=== PATIENT | male | born 1985 | race Caucasian/White ===

== ENCOUNTER 2018-01-14 05:37 | Inpatient (IN) ==
--- NOTE | 2018-01-14 06:16 | ED ---
HPI General Chief Complaint: Psychiatric Symptoms Stated Complaint: Transfer [facility] Time Seen by Provider: 01/14/18 13:00 Source: patient Mode of arrival: ambulatory Limitations: no limitations History of Present Illness HPI Narrative: 32-year-old white male presents emergency department as a transfer after medical clearance. Patient was transferred to be evaluated by the psychiatrist. Patient had been placed under a Rice act after trying to kill himself by jumping out of a tree. He states that he had been hearing voices commanding him to do self-harm. The patient admits to polysubstance abuse. Also states that he is upset because his baby mamma will not allow him to see his 9-month-old child. Patient complains of right facial pain. She denies syncope. No neck or back pain. No numbness, tingling or weakness. Patient had laboratory testing which was positive for cocaine and amphetamines. CAT scan of the head and facial bones were negative for acute intracranial injury or bony injury. Related Data Home Medications Medication Instructions Recorded Confirmed hydroxyzine pamoate 25 mg PO TID PRN 01/15/18 01/15/18 sertraline 50 mg PO DAILY 01/15/18 01/15/18 trazodone 50 - 100 mg PO HS PRN 01/15/18 01/15/18 Allergies Allergy/AdvReac Type Severity Reaction Status Date / Time No Known Allergies Allergy Unverified 01/14/18 06:18 Review of Systems ROS: all other systems reviewed are negative PMFSH Social History Social History Substance History: Active Abuse Second Hand Smoke Exposure: No Smoking Status: Heavy tobacco smoker Tobacco Type: Cigarettes How Often Do You Have a Drink Containing Alcohol: Monthly or less Recent Travel in [facility] within the Last 8 Weeks: No Recent Out of Country Travel within the Last 8 Weeks: No Exam Narrative Exam Narrative: GENERAL: Well-nourished, well-developed patient. SKIN: Warm and dry. Right periorbital ecchymosis but the skin is intact HEAD: Patient has right periorbital ecchymosis and edema. Tender to touch. No bony step-off. EYES: No scleral icterus. No injection or drainage. ENT: No nasal drainage noted. Mucous membranes pink. Airway patent. NECK: Supple, trachea midline. Moves head freely without obvious discomfort. CARDIOVASCULAR: Regular rate and rhythm without murmurs, gallops, or rubs. RESPIRATORY: Breath sounds equal bilaterally. No accessory muscle use. GASTROINTESTINAL: Abdomen soft, non-tender, nondistended. EXTREMITIES: No cyanosis or edema. BACK: Nontender without obvious deformity. No CVA tenderness. NEURO: Patient is alert and oriented. no sensorimotor deficits. Nonfocal. Normal speech. PSYCH: No delusions. No auditory or visual hallucinations. Course Reevaluation(s) Reevaluation #1: Patient was medically cleared to see psych. I was notified that because patient is due to go to [facility], his potassium should be over 3.3 prior to going to [facility] in the morning. Will recheck BMP. Time: 16:20 Initial Documented Vital Signs Temperature 99.1 F 01/14/18 05:37 Pulse Rate 64 01/14/18 05:37 Respiratory Rate 16 01/14/18 05:37 Blood Pressure 122/63 01/14/18 05:37 Last Documented Vital Signs Temperature 97.7 F 01/17/18 17:36 Pulse Rate 59 L 01/17/18 17:36 Respiratory Rate 16 01/17/18 18:52 Blood Pressure 109/59 L 01/17/18 17:36 Pulse Oximetry 100 01/17/18 17:36 Medical Decision Making MDM Narrative Medical decision making narrative: The patient has had medical clearance prior to coming in. I reviewed patient's laboratory tests. He had been given potassium 40 mEq p.o. prior to coming. CAT scan of the head and facial bones were negative for acute intracranial injury or fracture. There is no indication for additional testing at this time. Medical Screen Exam Complete: Yes Emergency Medical Condition: Yes Differential Diagnosis Differential Diagnosis: MDM: High Differential diagnoses: Schizophrenia, schizoaffective disorder, bipolar, anxiety, depression, adjustment reaction, mood disorder NOS, ODD, depressive disorder NOS, dementia, dementia with agitation, psychosis NOS, substance induced mood disorder, DMDD, Asperger syndrome, infection,electrolyte abnormality, malingering. Mental health screening discussed with the patient. Psychiatric screen ordered. Lab Data Result diagrams: 01/16/18 10:10 Lab Results 01/14/18 01/16/18 01/16/18 Range/Units 21:00 10:10 10:10 Sodium 145 144 (136-145) meq/L Potassium 4.1 4.1 (3.5-5.1) meq/L Chloride 108 H 105 (98-107) meq/L Carbon Dioxide 31.0 30.3 (21.0-32.0) meq/L Anion Gap 6 9 (5-15) meq/L BUN 9 12 (7-18) mg/dL Creatinine 0.88 0.82 (0.60-1.30) mg/dL Estimated GFR Greater than 89 Greater than 89 (>89) mL/min Random Glucose 102 95 (74-106) mg/dL Hemoglobin A1c 5.4 (4.3-6.0) % Calcium 8.7 8.8 (8.5-10.1) mg/dL Triglycerides 86 (42-150) mg/dL Cholesterol 96 L (120-200) mg/dL LDL Cholesterol, Calc 37 (0-99) mg/dL HDL Cholesterol 42.2 (40.0-60.0) mg/dL Cholesterol/HDL Ratio 2.27 Ratio Discharge Plan Discharge Disposition Patient Disposition: 32 Still Patient Discharge Condition Condition: Stable Physicians Team ED Provider: Maximilian Rocha ED Midlevel Provider: Jc Fontaine Primary Care Provider: Primary Care Lizette Cornelius Attending Provider: Hugh Lowe Other Providers: Eren Good Status ED Status: Left Department Discharge Information Discharge Date/Time: 01/15/18 19:54
--- NOTE | 2018-01-14 13:39 | ED ---
HPI - Psych - General Source: patient, other ([facility] records) Mode of arrival: ambulatory Limitations: no limitations - History of Present Illness MD complaint: suicidal ideation Onset (ago): week(s) Duration: constant History of same: Yes (Reports attempted to hang himself several months ago) Relieving factors: none Exacerbating factors: drug use Context: recent drug abuse, not taking psychiatric medications Associated psychiatric symptoms: depression Associated symptoms: denies other symptoms Treatments prior to arrival: none - General Chief Complaint: Psychiatric Symptoms Stated Complaint: Transfer [facility] Time Seen by Provider: 01/14/18 13:00 - History of Present Illness HPI Narrative: HPI Narrative: 32-year-old white, single male with reported history of depression, 2 previous suicide attempt by hanging and jumping off a tree, substance use disorder including amphetamines, cocaine and cannabis who presents to emergency department as a transfer from [facility] in [place] after medical clearance. Patient initially presented to that emergency department on a voluntary basis reporting suicidal ideation. According to the records which have been reviewed, he reported that he attempted to commit suicide 2 nights ago by jumping 15 feet from a tree and landing with his head aimed at a rock. He also reported command hallucinations that were telling him " Do yourself in. You do not need to be alive anymore. The patient was placed under Rice act by ED provider at [facility]. Records accompanying patient are reviewed. Records indicate that the patient was discharged from [facility] behavioral unit on December 31 of this year but failed to follow up with outpatient care. Toxicology positive for amphetamines, cocaine, cannabinoids. Patient is seen. carey Salgado present during evaluation. Patient is alert , oriented, disheveled appearance, ecchymotic right eye. Speech is clear, logical. Patient does not appear internally preoccupied although reports that he hears voices that tell him to kill himself. Patient reports mood as depressed. 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 He goes on to state that he "just need help with my head". (Ann Jones) - Related Data Allergies Allergy/AdvReac Type Severity Reaction Status Date / Time No Known Allergies Allergy Unverified 01/14/18 06:18 COUNT INCLUDES THE [facility] - History History Provided By: Patient - Tobacco History Smoking Status: Never smoker - Alcohol History How Often Do You Have a Drink Containing Alcohol: 2 to 3 times a week - Substance Use History Substance History: No History of Abuse, Active Abuse - Substance Use Type Crack/Cocaine Status: Active Amphetamines Status: Active Marijuana Status: Active - Immunization History Tetanus Immunization: >5 Years Hx Influenza Vaccine This Season: No Psychiatric History - Psychiatric History Psychiatric Treatment History: Denies Previous Treatment History of Inpatient Treatment: Yes Firearms in Home: No - Psychiatric History Denies. Records indicate that he attempted suicide by jumping off a tree. One previous attempt by hanging several months ago. Admitted to [facility] on December 2107. (Jones,Ann) - Legal History Unknown (Jones,Ann) - Family Psychiatric History Unknown (Gretchen Joness) Physical Exam - General Limitations: no limitations Mental Status Examination Appearance: Disheveled Consciousness: Alert Orientation: x4 Motor Activity: Normal gait Speech: Unremarkable Language: Adequate Fund of Knowledge: Adequate Attention and Concentration: Inadequate Memory: Unremarkable (poor historian) Mood: Angry, Irritable Affect: Blunt Thought Process & Associations: Intact, Logical, Goal directed Thought Content: Appropriate Hallucination Type: Auditory (does not appear to be respondign to internal stimuli) Delusion Type: None Suicidal Ideation: Yes Suicidal Plan: No Suicidal Intention: No Homicidal Ideation: No Homicidal Plan: No Homicidal Intention: No Insight: Poor Judgment: Impulsive Initial Documented Vital Signs Temperature 99.1 F 01/14/18 05:37 Pulse Rate 64 01/14/18 05:37 Respiratory Rate 16 01/14/18 05:37 Blood Pressure 122/63 01/14/18 05:37 Last Documented Vital Signs Temperature 99.1 F 01/14/18 05:37 Pulse Rate 64 01/14/18 05:37 Respiratory Rate 16 01/14/18 05:37 Blood Pressure 122/63 01/14/18 05:37 MDM - Psych - Diagnosis (1) Substance induced mood disorder Status: Acute - [facility] Narrative Medical decision making narrative: At the time of this evaluation the patient is very irritable, vague in his answers, and only minimally cooperative. Patient denied using any substances although positive toxicology for amphetamines, cocaine, cannabinoids. He continues to endorse suicidal ideation. Patient will be placed on [facility] list for further treatment. Remains under Rice act at this time until further evaluation. (Ann Jones)
[2018-01-14 21:46] LABS: Anion Gap 6 meq/L (5-15); Blood Urea Nitrogen 9 mg/dL (7-18); Calcium 8.7 mg/dL (8.5-10.1); Chloride 108 meq/L (98-107); Glomerular Filtration Rate Greater Than 89 mL/min (>89); Glucose,Random 102 mg/dL (74-106); Potassium 4.1 meq/L (3.5-5.1); Sodium 145 meq/L (136-145)
[2018-01-15] MEDS ORDERED: LORazepam 1 MG Tablet PO PRN (18:32)
[2018-01-15] MEDS ORDERED: Aluminum/Magnesium/Simethacone Susp 30 ML UDC PO PRN (18:32)
[2018-01-15] MEDS: Senna/Docusate Sodium 8.6/50 MG Tablet PO SCH (22:48)
[2018-01-16] MEDS: Senna/Docusate Sodium 8.6/50 MG Tablet PO SCH ×2 (09:32→21:25)
[2018-01-16 11:00] LABS: Anion Gap 9 meq/L (5-15); Blood Urea Nitrogen 12 mg/dL (7-18); Calcium 8.8 mg/dL (8.5-10.1); Carbon Dioxide 30.3 meq/L (21.0-32.0); Chloride 105 meq/L (98-107); Cholesterol 96 mg/dL (120-200); Glomerular Filtration Rate Greater Than 89 mL/min (>89); Glucose,Random 95 mg/dL (74-106); Potassium 4.1 meq/L (3.5-5.1); Sodium 144 meq/L (136-145); Triglycerides 86 mg/dL (42-150)
[2018-01-16 11:01] LABS: Chol/HDL Ratio 2.27 Ratio; HDL Cholesterol 42.2 mg/dL (40.0-60.0); LDL Cholesterol,Calculated 37 mg/dL (0-99)
[2018-01-16 13:18] LABS: Hemoglobin A1c 5.4 % (4.3-6.0)
[2018-01-16] MEDS: Acetaminophen 325 MG Tablet PO PRN (13:40)
[2018-01-16] MEDS ORDERED: Aluminum/Magnesium/Simethacone Susp 30 ML UDC PO PRN (14:31)
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
[2018-01-16] MEDS: Escitalopram 10 MG Tablet PO SCH (15:34)
[2018-01-16] MEDS: QUEtiapine 100 MG Tablet PO SCH (21:25)
[2018-01-17] MEDS: Escitalopram 10 MG Tablet PO SCH (09:47)
[2018-01-17] MEDS: Senna/Docusate Sodium 8.6/50 MG Tablet PO SCH ×2 (09:48→20:19)
--- NOTE | 2018-01-17 11:20 | P.PNPSY ---
Subjective Remarks: This is a request for second opinion. Admission note was reviewed and I agree with the history. Patient was seen and case was discussed with nursing. Patient describes being depressed for the last couple of weeks with suicidal ideation. He claims he was not using when he jumped out of the tree. He describes various stressors in psychoeducation and supportive therapy was done. There is little insight or motivation to stop using drugs however today, he contracts for safety and denies suicidal or homicidal ideation intent or plan. Mental Status Examination Appearance: Appropriate, Disheveled Consciousness: Alert Orientation: x4 Motor Activity: Normal gait Speech: Unremarkable Language: Adequate Fund of Knowledge: Adequate Attention and Concentration: Adequate (Fair) Memory: Unremarkable (poor historian) Mood: Sad Affect: Blunt Thought Process & Associations: Intact, Logical, Goal directed Thought Content: Appropriate Hallucination Type: None Delusion Type: None Suicidal Ideation: Yes (Patient will probably take the suicide pill) Suicidal Plan: No Suicidal Intention: No Homicidal Ideation: No Homicidal Plan: No Homicidal Intention: No Insight: Poor Judgment: Impulsive Assessment and Plan - Assessment (1) Substance induced mood disorder Code(s): F19.94 - Other psychoactive substance use, unspecified with psychoactive substance-induced mood disorder Status: Acute (2) Adjustment disorder with mixed disturbance of emotions and conduct Code(s): F43.25 - Adjustment disorder with mixed disturbance of emotions and conduct Status: Acute (3) Polysubstance abuse Code(s): F19.10 - Other psychoactive substance abuse, uncomplicated Status: Acute - Plan Plan: I agree with the first opinion to continue petition. Criteria include suicide attempt Justification for Continued Inpatient Stay: Patient would decompensate in a less restrictive setting Request Healthcare Surrogate/Guardian Advocate?: No
[2018-01-17] MEDS: Acetaminophen 325 MG Tablet PO PRN (16:26)
[2018-01-17] MEDS: QUEtiapine 100 MG Tablet PO SCH (20:20)
[2018-01-18] MEDS: Escitalopram 10 MG Tablet PO SCH (09:28)
[2018-01-18] MEDS: Senna/Docusate Sodium 8.6/50 MG Tablet PO SCH ×2 (10:43→20:47)
--- NOTE | 2018-01-18 13:14 | P.PNPSY ---
Subjective Remarks: The patient was seen today for psychiatric reevaluation. Case was discussed with nursing charge. Documentation from weekend was reviewed. On psychiatric evaluation the patient is in his bed, isolated, kind of guarded. He continues to endorse depression, feeling anhedonia, hopeless, helplessness, and also hearing voices telling him to kill himself. The patient was able to contract for safety in the unit. He reports that he wants to get better, he wants to continue his medications, so far he has been compliant, no significant side effects. Is oriented 3. No agitation, no aggressive behavior reported for this patient in the Unit. Mental Status Examination Appearance: Appropriate, Disheveled Consciousness: Alert Orientation: x4 Motor Activity: Normal gait Speech: Unremarkable Language: Adequate Fund of Knowledge: Adequate Attention and Concentration: Adequate (Fair) Memory: Unremarkable (poor historian) Mood: Sad Affect: Blunt Thought Process & Associations: Intact, Logical, Goal directed Thought Content: Appropriate Hallucination Type: None Delusion Type: None Suicidal Ideation: Yes (Patient will probably take the suicide pill) Suicidal Plan: No Suicidal Intention: No Homicidal Ideation: No Homicidal Plan: No Homicidal Intention: No Insight: Poor Judgment: Impulsive Assessment and Plan - Assessment (1) Substance induced mood disorder Code(s): F19.94 - Other psychoactive substance use, unspecified with psychoactive substance-induced mood disorder Status: Acute (2) Adjustment disorder with mixed disturbance of emotions and conduct Code(s): F43.25 - Adjustment disorder with mixed disturbance of emotions and conduct Status: Acute (3) Polysubstance abuse Code(s): F19.10 - Other psychoactive substance abuse, uncomplicated Status: Acute - Plan Plan: Patient continues to be very depressed, with commanding type auditory hallucinations. Today I will increase the Celexa to 20 mg daily for depression Justification for Continued Inpatient Stay: Patient is acutely psychotic, very depressed, needs to continue psychiatric hospitalization for stabilization. Request Healthcare Surrogate/Guardian Advocate?: No
[2018-01-18] MEDS: QUEtiapine 100 MG Tablet PO SCH (20:32)
[2018-01-19] MEDS: Senna/Docusate Sodium 8.6/50 MG Tablet PO SCH ×2 (09:15→20:48)
[2018-01-19] MEDS: Acetaminophen 325 MG Tablet PO PRN ×3 (09:50→21:32)
--- NOTE | 2018-01-19 14:01 | P.PNPSY ---
Subjective Remarks: Patient seen and hanson with floor staff, chart reviewed, patient compliant medication. Patient continues somewhat aroused stating there is still vague auditory hallucinations in his peripheral somewhat depressed. States his sleep is somewhat improved. Patient able contract to do no harm at this time. We will add Seroquel 50 mg at 8 AM and 4 PM continue the 100 mg at at bedtime Review of Systems All other systems reviewed negative except as stated in HPI Mental Status Examination Appearance: Appropriate, Disheveled Consciousness: Alert Orientation: x4 Motor Activity: Normal gait Speech: Unremarkable Language: Adequate Fund of Knowledge: Adequate Attention and Concentration: Adequate (Fair) Memory: Unremarkable (poor historian) Mood: Sad Affect: Blunt Thought Process & Associations: Intact, Logical, Goal directed Thought Content: Appropriate Hallucination Type: Auditory (Vague intermittent) Delusion Type: None Suicidal Ideation: Yes (Patient will probably take the suicide pill) Suicidal Plan: No Suicidal Intention: No Homicidal Ideation: No Homicidal Plan: No Homicidal Intention: No Insight: Poor Judgment: Impulsive Assessment and Plan - Assessment (1) Substance induced mood disorder Code(s): F19.94 - Other psychoactive substance use, unspecified with psychoactive substance-induced mood disorder Status: Acute (2) Adjustment disorder with mixed disturbance of emotions and conduct Code(s): F43.25 - Adjustment disorder with mixed disturbance of emotions and conduct Status: Acute (3) Polysubstance abuse Code(s): F19.10 - Other psychoactive substance abuse, uncomplicated Status: Acute - Plan Plan: Patient continues vigilant somewhat paranoid and vague reference towards voices , c medication adjustments above Justification for Continued Inpatient Stay: At this time patient would decompensate a place to a lower level of care Discharge Planning: To be determined Request Healthcare Surrogate/Guardian Advocate?: No
--- NOTE | 2018-01-19 14:52 | P.TTN ---
- Patient Problems Problems: 1. Discharge planning 2. Medication compliance 3. Knowledge deficit 4. Lack of coping skills - Progress Toward Goals Provider Present: Dr. Benito Hull (Patient is new to Dr. Hull.) Psychiatric Counselors Present: Omar Rahman Jr., [facility] (Patient is new to counselor Omar.) - Documentation Teaching Recipient: Patient
[2018-01-19] MEDS: QUEtiapine 25 MG Tablet PO SCH (15:17)
[2018-01-19] MEDS: QUEtiapine 100 MG Tablet PO SCH (20:49)
[2018-01-20 07:10] VITALS: O2SAT 98
[2018-01-20] MEDS: Senna/Docusate Sodium 8.6/50 MG Tablet PO SCH ×2 (08:32→21:30)
[2018-01-20] MEDS: QUEtiapine 25 MG Tablet PO SCH ×2 (08:39→15:35)
--- NOTE | 2018-01-20 14:44 | P.PNPSY ---
Subjective Remarks: Patient is seen and hanson with nurse Galilea, chart reviewed, patient compliant medication. Patient's mood is slowly lifting he is showing increased affect with better eye contact though he still is somewhat vague about suicidality. However feel at this time patient is improved to the point where he is a capacity to sign voluntary thus I will lift Rice act low patient signed voluntary and continue treatment Review of Systems All other systems reviewed negative except as stated in HPI Mental Status Examination Appearance: Appropriate, Disheveled Consciousness: Alert Orientation: x4 Motor Activity: Normal gait Speech: Unremarkable Language: Adequate Fund of Knowledge: Adequate Attention and Concentration: Adequate (Fair) Memory: Unremarkable (poor historian) Mood: Sad Affect: Other (Improved range and intensity) Thought Process & Associations: Intact, Logical, Goal directed Thought Content: Appropriate Hallucination Type: Auditory (Vague intermittent) Delusion Type: None Suicidal Ideation: Yes (Improved somewhat vague today) Suicidal Plan: No Suicidal Intention: No Homicidal Ideation: No Homicidal Plan: No Homicidal Intention: No Insight: Poor Judgment: Impulsive Assessment and Plan - Assessment (1) Substance induced mood disorder Code(s): F19.94 - Other psychoactive substance use, unspecified with psychoactive substance-induced mood disorder Status: Acute (2) Adjustment disorder with mixed disturbance of emotions and conduct Code(s): F43.25 - Adjustment disorder with mixed disturbance of emotions and conduct Status: Acute (3) Polysubstance abuse Code(s): F19.10 - Other psychoactive substance abuse, uncomplicated Status: Acute - Plan Plan: Patient depression is slowly lifting. At the stomach feel patient does have capacity will lift the Rice act allow him to sign voluntary continue treatment Justification for Continued Inpatient Stay: At this time patient would decompensate a place to a lower level of care Discharge Planning: To be determined Request Healthcare Surrogate/Guardian Advocate?: No
[2018-01-20] MEDS: QUEtiapine 100 MG Tablet PO SCH (21:30)
[2018-01-21 04:52] VITALS: RESP 16
[2018-01-21] MEDS: Senna/Docusate Sodium 8.6/50 MG Tablet PO SCH ×2 (08:59→20:45)
[2018-01-21] MEDS: QUEtiapine 25 MG Tablet PO SCH ×2 (08:59→15:17)
--- NOTE | 2018-01-21 12:26 | P.PNPSY ---
Subjective Remarks: Patient is seen and hanson with floor staff, chart reviewed, patient compliant medication. His mood continues to improve he is vague about suicidality denies voices. However there is some anxiety related to placement issues. We did discuss sober living facilities. Patient seems quite willing to consider them. At make telephone calls. We will have counselor supply patient with phone number and locations for the various supportive living places here in [facility] and in [place] then consider discharge tomorrow Review of Systems All other systems reviewed negative except as stated in HPI Mental Status Examination Appearance: Appropriate, Disheveled Consciousness: Alert Orientation: x4 Motor Activity: Normal gait Speech: Unremarkable Language: Adequate Fund of Knowledge: Adequate Attention and Concentration: Adequate (Fair) Memory: Unremarkable (poor historian) Mood: Sad Affect: Other (Improved range and intensity) Thought Process & Associations: Intact, Logical, Goal directed Thought Content: Appropriate Hallucination Type: Auditory (Vague intermittent) Delusion Type: None Suicidal Ideation: Yes (Improved somewhat vague today) Suicidal Plan: No Suicidal Intention: No Homicidal Ideation: No Homicidal Plan: No Homicidal Intention: No Insight: Poor Judgment: Impulsive Assessment and Plan - Assessment (1) Substance induced mood disorder Code(s): F19.94 - Other psychoactive substance use, unspecified with psychoactive substance-induced mood disorder Status: Acute (2) Adjustment disorder with mixed disturbance of emotions and conduct Code(s): F43.25 - Adjustment disorder with mixed disturbance of emotions and conduct Status: Acute (3) Polysubstance abuse Code(s): F19.10 - Other psychoactive substance abuse, uncomplicated Status: Acute - Plan Plan: Patient calmer more focused his affect is improving. Though there is some anxiety related to placement issues. Patient started calling sober living facilities consider discharge tomorrow patient is vague about any suicidality though his behavior on the unit shows he is improving. He is also compliant medication Justification for Continued Inpatient Stay: At this time patient would decompensate if not placed in an appropriate level of care patient to explore sober living facilities today Discharge Planning: To be determined Request Healthcare Surrogate/Guardian Advocate?: No
[2018-01-21] MEDS: QUEtiapine 100 MG Tablet PO SCH (20:44)
[2018-01-22 06:30] VITALS: BP 104/54; PULSE 54; TEMP 97.9
[2018-01-22] MEDS: Senna/Docusate Sodium 8.6/50 MG Tablet PO SCH (08:43)
[2018-01-22] MEDS: QUEtiapine 25 MG Tablet PO SCH (08:48)
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
== END 2018-01-22 13:35 | disposition home or self-care (01) ==
LOC: NED 05:37 → NEDA 01-15 18:40 → H270 01-15 19:56 → H260 01-19 14:52
PROVIDERS: ADMIT Psychiatry & Neurology Psychiatry; ATTEND Psychiatry & Neurology Psychiatry